=== PATIENT | female | born 1980 | race African-American/Black ===

== ENCOUNTER 2018-06-14 17:10 | Emergency (ER) | payer OTHER, SELFPAY ==
[2018-06-14 17:10] VITALS: BP 161/96; PULSE 87; RESP 16; TEMP 36.8; O2SAT 100; BMI 29.9
--- NOTE | 2018-06-14 17:24 | CT_ITS ---
STUDY: CT SOFT TISSUE NECK WITH CONTRAST REASON FOR EXAM: Female, 38 years old. Difficulty swallowing, dental pain RADIATION DOSAGE (If Supplied By Facility): CTDIvol = ( 18.37 ) mGy, DLP = ( 541.20 ) mGycm TECHNIQUE: The patient was scanned in a multi-detector CT scanner. High resolution transaxial imaging was performed following intravenous administration of 75ml ml of Isovue 370 contrast material. Sagittal and coronal images were reconstructed. Individualized dose optimization techniques were used for this CT. COMPARISON: None. FINDINGS: Normal bilateral parotid glands. Normal bilateral sales service technician spaces. Normal bilateral parapharyngeal spaces. Normal bilateral carotid spaces. Normal bilateral sublingual and submandibular glands and spaces. Normal visualized nasopharynx. Normal retropharyngeal space. Normal perivertebral space. Slightly prominent bilateral tonsils. The visualized tongue, tongue base and oropharynx are normal. The visualized cervical lymph nodes (levels I-) are within normal size limits, and maintain normal morphology. There is no demonstrated solid or cystic mass lesion. There is no abnormal contrast enhancement. Normal epiglottis, bilateral vallecula and hypopharynx. The pre-epiglottic and paraglottic adipose spaces are normal. Normal visualized bilateral piriform sinuses, aryepiglottic folds, vocal cords, and arytenoid-cricoid articulations. Normal subglottic trachea. Mild thickening at the proximal cervical esophagus. Normal bilateral lobes of the thyroid gland. Normal visualized pulmonary apices. Normal visualized paranasal sinuses. Normal visualized cervical spine. Diffusely hypoplastic left vertebral artery. CT/Soft Tissue Neck WITH Contrast IMPRESSION: Slightly prominent tonsils. Mild thickening of the proximal cervical esophagus. Hypoplastic left vertebral artery. Electronically Signed: Enrrique Lopez DO at 18:46 EST Tel [phone], Service support ,
--- NOTE | 2018-06-14 17:27 | ED.VISSUMM ---
- ER Visit Summary Date of Service: 06/14/18 Chief Complaint: Dental pain History of Present Illness: The patient is a 38 F presenting with dental pain. Patient states this has been ongoing for the past 3 days. She has sensitivity to hot and cold. She states the pain worsened today in her lower right jaw. She is awaiting insurance to get her tooth pulled. She complains of painful swallowing as well. She denies fever. Denies other complaints. Physical Examination: Vitals are stable. Patient is afebrile. Alert no acute distress. HEENT exam right lower molar tenderness, no surrounding fluctuance. No sublingual edema. Right mandibular swelling and tenderness Neck is supple. Lungs are clear and equal bilaterally. Heart is regular rate and rhythm. Extremities are unremarkable. Skin is warm and dry. Remainder of exam is unremarkable. Emergency Department Course and Treatment: Patient was given morphine, Zofran IV. CT soft tissue neck shows slightly prominent tonsils. Mild thickening of the proximal cervical esophagus. Hypoplastic left vertebral artery. Patient is advised to follow-up with her primary care physician and her dentist. Advised return to ED if worsening complaints. She is given a prescription for clindamycin and short course of [place]. Disposition: Discharge home Impression: Odontalgia, facial swelling This note was generated with [employer] dictation software. It may contain incorrect words, spelling, and punctuation that were not noted in review of the chart prior to signing ED Disposition - Plan for ED Patient: Disposition: Home or Assisted Living Chief Complaint: Dental Instructions: ED Tooth Pain Prescriptions: Hydrocodone Bitart/Apap 5-325 [[place] 5MG-325MG] 1 tablet PO Q6H PRN PRN 3 Days #10 tablet PRN Reason: Pain Clindamycin [Cleocin] 300 mg PO 4X/DAY #80 capsule Referrals: Care Physician,No Primary [Primary Care Provider] -
--- NOTE | 2018-06-14 17:30 | ED.DCSUM_ITS ---
- ER Visit Summary Date of Service: 06/14/18 Chief Complaint: Dental pain History of Present Illness: The patient is a 38 F presenting with dental pain. Patient states this has been ongoing for the past 3 days. She has sensitivity to hot and cold. She states the pain worsened today in her lower right jaw. She is awaiting insurance to get her tooth pulled. She complains of painful swallowing as well. She denies fever. Denies other complaints. Physical Examination: Vitals are stable. Patient is afebrile. Alert no acute distress. HEENT exam right lower molar tenderness, no surrounding fluctuance. No sublingual edema. Right mandibular swelling and tenderness Neck is supple. Lungs are clear and equal bilaterally. Heart is regular rate and rhythm. Extremities are unremarkable. Skin is warm and dry. Remainder of exam is unremarkable. Emergency Department Course and Treatment: Patient was given morphine, Zofran IV. CT soft tissue neck shows slightly prominent tonsils. Mild thickening of the proximal cervical esophagus. Hypoplastic left vertebral artery. Patient is advised to follow-up with her primary care physician and her dentist. Advised return to ED if worsening complaints. She is given a prescription for clindamy shea and short course of [place]. Disposition: Discharge home Impression: Odontalgia, facial swelling This note was generated with [employer] dictation software. It may contain incorrect words, spelling, and punctuation that were not noted in review of the chart prior to signing ED Disposition - Plan for ED Patient: Disposition: Home or Assisted Living Chief Complaint: Dental Instructions: ED Tooth Pain Prescriptions: Hydrocodone Bitart/Apap 5-325 [[place] 5MG-325MG] 1 tablet PO Q6H PRN PRN 3 Days #10 tablet PRN Reason: Pain Clindamycin [Cleocin] 300 mg PO 4X/DAY #80 capsule Referrals: Care Physician,No Primary [Primary Care Provider] -
[2018-06-14] MEDS: Ondansetron 4 MG/2 ML Vial IV (17:39)
[2018-06-14] MEDS: Morphine 4 MG/ML Syringe IV (17:39)
[2018-06-14 17:43] VITALS: BP 159/76; PULSE 81; RESP 16; TEMP 36.9; O2SAT 98
[2018-06-14 19:12] VITALS: BP 151/83; PULSE 82; RESP 16; TEMP 36.9; O2SAT 98
--- NOTE | 2018-06-14 19:28 | ED.DEP ---
ED Disposition - Plan for ED Patient: Chief Complaint: Dental Instructions: ED Tooth Pain Prescriptions: Hydrocodone Bitart/Apap 5-325 [[place] 5MG-325MG] 1 tablet PO Q6H PRN PRN 3 Days #10 tablet PRN Reason: Pain Clindamycin [Cleocin] 300 mg PO 4X/DAY #80 capsule Referrals: Care Physician,No Primary [Primary Care Provider] -
[2018-06-14 19:40] VITALS: RESP 16
== END 2018-06-14 19:42 | disposition home or self-care (01) ==
PROVIDERS: Emergency Provider Emergency Medicine
DX: K08.89 Other specified disorders of teeth and supporting structures (principal); R22.0 Localized swelling, mass and lump, head; Z72.0 Tobacco use
CPT/HCPCS: 70491; 96374; 96375; 99283; J7030; Q9967; A4216; J2405

== ENCOUNTER 2020-02-27 14:53 | Emergency (ER) | payer MEDICAID, SELFPAY ==
[2020-02-27 14:54] VITALS: BP 152/83; PULSE 62; RESP 14; TEMP 36.3; O2SAT 100; BMI 31.9
--- NOTE | 2020-02-27 15:39 | ED.VISSUMM ---
- ER Visit Summary Date of Service: 02/27/20 Chief Complaint: Atraumatic hand pain History of Present Illness: The patient is a 40 F who is seen in past medical history. Patient is right-hand dominant. She works ago during the last 2 months. Last 2 weeks she has had a lot of soreness and swelling in her hands. She denies any falls or trauma. She denies any medical illnesses. 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 No prior history. No fever or chills. No other complaints. Physical Examination: No white female no acute distress vital signs stable afebrile. HEENT exam unremarkable. Neck nontender no JVD. No lymphadenopathy. Lungs clear to auscultation bilaterally. Heart regular rhythm no murmur. Abdomen soft nontender normal bowel sounds no peritoneal signs. Extremities moves all 4. Both hands and feet are neurovascular intact. There is minimal swelling to the hands. She has full flexion-extension of both hands. Normal radial pulses. Normal flexion-extension of the wrist. No significant chronic changes consistent with arthritis. Normal touch sensation and cap refill. There is no signs of infection. Hands are very similar appearance. Normal. Test Results: None Emergency Department Course and Treatment: Discussed with patient most likely this is an overuse syndrome secondary to use her hand so much on assembly line. Ice and anti-inflammatories. If not improving follow-up. Treatment Plan: Ice and anti-inflammatories. Disposition: Discharge Impression: Bilateral atraumatic hand pain secondary to overuse syndrome This note was generated with [employer] dictation software. It may contain incorrect words, spelling, and punctuation that were not noted in review of the chart prior to signing ED Disposition - Plan for ED Patient: Referrals: Care Physician,No Primary [Primary Care Provider] -
--- NOTE | 2020-02-27 15:41 | ED.DEP ---
ED Disposition - Plan for ED Patient: Disposition: Home or Assisted Living Referrals: Sebas Abdalla MD [STAFF PHYSICIAN] - 1 Week if not improving Additional Instructions: Motrin or ibuprofen for pain and swelling. Ice and elevate your hand to decrease swelling. Follow-up with a local physician if not improving.
== END 2020-02-27 15:50 | disposition home or self-care (01) ==
PROVIDERS: Emergency Provider Emergency Medicine
DX: M79.642 Pain in left hand (principal); M79.641 Pain in right hand
CPT/HCPCS: 99282